=== PATIENT | female | born 1955 | race Caucasian/White ===

== ENCOUNTER → 2021-05-23 | Outpatient (CLI) | payer OTHER ==
[2021-05-23 11:24] LABS: Hematocrit 41.2 % (36.0-46.0); Hemoglobin 13.8 g/dL (12.2-16.2); Mean Corpuscular Hgb Conc. 33.5 g/dL (32.0-36.0); Mean Corpuscular Volume 89.5 fL (80.0-100.0); Red Blood Cells 4.61 10^6/uL (4.0-5.20); Red Cell Distribution Width 13.9 % (11.8-14.3); White Blood Cell 5.5 10^3/uL (4.4-10.8)
[2021-05-23 11:59] LABS: Albumin 3.7 g/dL (3.4-5.0); Calcium 9.3 mg/dL (8.5-10.1)
[2021-05-23 12:10] LABS: BUN/Creatinine Ratio 18.9; Bilirubin, Total 0.4 mg/dL (0.2-1.0); Total Protein 7.2 g/dL (6.4-8.2)
[2021-05-23 12:25] LABS: Band Neutrophils % (manual) 0; Basophils % (manual) 0 (0.0-2.0); Blast Cells 0; Metamyelocytes % 0; Myelocytes % 0; Promyelocytes % 0; Reactive Lymphocytes 0
[2021-05-23 15:53] LABS: Eosinophils % (manual) 3 (0-7); Lymphocytes % (manual) 30 (10.0-50.0); Monocytes % (manual) 7 (0-12)
== END | disposition home or self-care (01) ==
LOC: LAB 09:29
PROVIDERS: ATTEND Internal Medicine
DX: Z12.11 Encounter for screening for malignant neoplasm of colon (principal); Z00.00 Encounter for general adult medical examination without abnormal findings; E78.5 Hyperlipidemia, unspecified; E53.9 Vitamin B deficiency, unspecified; I10 Essential (primary) hypertension
CPT/HCPCS: 36415; 80053; 80061; 82274; 82306; 84439; 84443; 85007; 85027

== ENCOUNTER 2021-07-02 10:59 | Inpatient (IN) | payer MEDICARE, OTHER ==
[~2021-07-02] VITALS: Ht 170.2 cm; Wt 90.3 kg
[2021-07-02 12:28] LABS: Basophils # (auto) 0 10 ^3/uL (0-0.2); Basophils % (auto) 0.4 % (0.0-2.0); Eosinophils # (auto) 0.1 10 ^3/uL (0-0.8); Eosinophils % (auto) 2.3 % (0.0-7.0); Hematocrit 42.1 % (36.0-46.0); Hemoglobin 14.3 g/dL (12.2-16.2); Lymphocytes # (auto) 1.6 10 ^3/uL (0.4-5.4); Lymphocytes % (auto) 26.7 % (10.0-50.0); Mean Corpuscular Hemoglobin 29.9 pg (28.0-32.0); Mean Corpuscular Volume 88.2 fL (80.0-100.0); Monocytes # (auto) 0.5 10 ^3/uL (0-1.3); Monocytes % (auto) 8.9 % (0.0-12.0); Neutrophils # (auto) 3.6 10 ^3/uL (1.6-8.6); Neutrophils % (auto) 61.7 % (37.0-80.0); Nucleated Red Blood Cells % 0.1 %; Red Blood Cells 4.77 10^6/uL (4.0-5.20); Red Cell Distribution Width 14.1 % (11.8-14.3); White Blood Cell 5.9 10^3/uL (4.4-10.8)
[2021-07-02 12:48] LABS: Chloride 108 mmol/L (98-107); Potassium 4.4 mmol/L (3.5-5.1); Sodium 139 mmol/L (136-145)
[2021-07-02 12:52] LABS: Alanine Aminotransferase 40 U/L (13-56); Albumin 3.8 g/dL (3.4-5.0); Anion Gap 4 (5-15); Aspartate Aminotransferase 28 U/L (15-37); BUN/Creatinine Ratio 21.5; Blood Urea Nitrogen 23 mg/dL (7-18); Calcium 9.5 mg/dL (8.5-10.1); Carbon Dioxide 27 mmol/L (21-32); GFR African American 66 mL/min; GFR Non-African American 55 mL/min; Glucose 104 mg/dL (74-106); Magnesium 2.3 mg/dL (1.6-2.6)
[2021-07-02 13:00] LABS: Alkaline Phosphatase 114 U/L (45-117); Bilirubin, Total 0.2 mg/dL (0.2-1.0); Total Protein 7.5 g/dL (6.4-8.2)
[2021-07-02] MEDS ORDERED: ASPirin 81 mg TAB PO ONE (13:15)
[2021-07-02] MEDS ORDERED: NITROGLYCERIN 0.4 MG SL TAB SL ONE (13:15)
[2021-07-02] MEDS ORDERED: NITROGLYCERIN 0.4 MG SL TAB SL PRN (17:30)
[2021-07-02] MEDS ORDERED: MORPHINE SULFATE INJECTION 2 MG/ML SYRG IV PRN ×2 (17:30→19:15)
[2021-07-02] MEDS ORDERED: ACETAMINOPHEN 325 MG TAB PO PRN (19:15)
[2021-07-02] MEDS ORDERED: PANTOPRAZOLE 40 MG/10 ML VIAL INJ IV ONE (19:15)
[2021-07-02] MEDS ORDERED: HYDROcodone-ACET 5/325MG TAB PO PRN (19:15)
[2021-07-02] MEDS ORDERED: MULTIPLE VITAMINS W/ MINERALS TAB PO ONE (19:15)
[2021-07-02] MEDS ORDERED: MONTELUKAST SODIUM 10 MG TAB PO ONE (19:15)
[2021-07-02] MEDS ORDERED: HYDROcodone-ACET 5/325MG TAB PO ONE (19:15)
[2021-07-02] MEDS ORDERED: SUCRALFATE 1 GM/10 ML ORAL SUSP PO ONE (19:15)
[2021-07-02] MEDS ORDERED: hydrALAZINE HCL 20 MG/ML VL IV PRN (19:15)
[2021-07-02] MEDS ORDERED: ONDANSETRON HCL 4 MG/2 ML VIAL IV PRN (19:15)
[2021-07-02] MEDS ORDERED: IPRATROPIUM BROM 0.5 MG/2.5ML INH SOL NEB ONE (19:15)
[2021-07-02] MEDS ORDERED: FOLIC ACID 1 MG TAB PO ONE (19:15)
[2021-07-02] MEDS ORDERED: ALBUTEROL SULF 2.5 MG/0.5ML(0.5%) NEB SOLN NEB ONE (19:15)
[2021-07-02] MEDS ORDERED: ALBUTEROL SULF 2.5 MG/0.5ML(0.5%) NEB SOLN NEB PRN (19:15)
[2021-07-02] MEDS ORDERED: LACTULOSE 20Gm/30ML SOLN PO PRN (19:15)
[2021-07-02] MEDS ORDERED: LORazepam 0.5 MG TAB PO PRN (19:15)
[2021-07-02] MEDS ORDERED: BUDESONIDE (INHALATION) 0.5 MG/2 ML NEB NEB ONE (19:15)
[2021-07-02] MEDS ORDERED: IPRATROPIUM BROM 0.5 MG/2.5ML INH SOL NEB PRN (19:45)
[2021-07-02 19:51] LABS: Magnesium 2.2 mg/dL (1.6-2.6); Phosphorus 2.8 mg/dL (2.5-4.90)
[2021-07-02 20:21] VITALS: BP 126/60
[2021-07-02 20:39] LABS: INR 1.06 (0.9-1.15); Partial Thromboplastin Time 29.8 sec (23.6-33.0)
[2021-07-02] MEDS: SUCRALFATE 1 GM/10 ML ORAL SUSP PO SCH (22:00)
[2021-07-02] MEDS ORDERED: ACETYLCYSTEINE 10 %(100MG/ML) SOL 4ML NEB SCH (22:00)
[2021-07-02] MEDS ORDERED: IPRATROPIUM BROM 0.5 MG/2.5ML INH SOL NEB SCH (22:00)
[2021-07-02] MEDS ORDERED: ATORVASTATIN 20 MG TAB PO SCH (22:00)
[2021-07-02] MEDS ORDERED: ATOR20TA50 PO (22:54)
[2021-07-02] MEDS ORDERED: BUPR150T8 PO (22:54)
[2021-07-02] MEDS ORDERED: FLUT1AER6 IN (22:54)
[2021-07-02] MEDS ORDERED: ATEN-60 PO (22:54)
[2021-07-02] MEDS: BUDESONIDE (INHALATION) 0.5 MG/2 ML NEB NEB SCH (22:59)
[2021-07-02 23:32] VITALS: BP 136/83
[2021-07-03] MEDS ORDERED: PHEN37.577 PO (00:44)
[2021-07-03 05:00] VITALS: BP 124/77
[2021-07-03 06:04] LABS: Basophils # (auto) 0 10 ^3/uL (0-0.2); Basophils % (auto) 0.6 % (0.0-2.0); Eosinophils # (auto) 0.1 10 ^3/uL (0-0.8); Eosinophils % (auto) 2.4 % (0.0-7.0); Hematocrit 38.4 % (36.0-46.0); Hemoglobin 13.3 g/dL (12.2-16.2); Lymphocytes # (auto) 2.1 10 ^3/uL (0.4-5.4); Lymphocytes % (auto) 41.8 % (10.0-50.0); Mean Corpuscular Hemoglobin 30.8 pg (28.0-32.0); Mean Corpuscular Hgb Conc. 34.7 g/dL (32.0-36.0); Mean Corpuscular Volume 88.6 fL (80.0-100.0); Monocytes # (auto) 0.4 10 ^3/uL (0-1.3); Monocytes % (auto) 7.7 % (0.0-12.0); Neutrophils # (auto) 2.4 10 ^3/uL (1.6-8.6); Neutrophils % (auto) 47.5 % (37.0-80.0); Nucleated Red Blood Cells % 0.1 %; Red Blood Cells 4.33 10^6/uL (4.0-5.20); White Blood Cell 5.1 10^3/uL (4.4-10.8)
[2021-07-03 06:19] LABS: INR 1.09 (0.9-1.15); Partial Thromboplastin Time 31.6 sec (23.6-33.0)
[2021-07-03] MEDS: SUCRALFATE 1 GM/10 ML ORAL SUSP PO SCH ×2 (06:24→10:09)
[2021-07-03 06:30] LABS: Albumin 3.4 g/dL (3.4-5.0); BUN/Creatinine Ratio 21.5; Bilirubin, Total 0.3 mg/dL (0.2-1.0); CRP High Sensitivity 0.67 mg/dL (< 0.3); Calcium 8.7 mg/dL (8.5-10.1); Magnesium 2.2 mg/dL (1.6-2.6); Phosphorus 3.6 mg/dL (2.5-4.90); Total Protein 6.6 g/dL (6.4-8.2)
[2021-07-03 08:00] VITALS: BP 128/76
[2021-07-03] MEDS ORDERED: THIAMINE HCL 100 MG TAB PO SCH (10:00)
[2021-07-03] MEDS ORDERED: FOLIC ACID 1 MG TAB PO SCH (10:00)
[2021-07-03] MEDS ORDERED: CHOLECALCIFEROL (VITD3) 2,000 UNIT CAP/TAB PO SCH (10:00)
[2021-07-03] MEDS ORDERED: ENOXAPARIN SOD 40 MG/0.4 ML SYRINGE SC SCH (10:00)
[2021-07-03] MEDS ORDERED: MULTIPLE VITAMINS W/ MINERALS TAB PO SCH (10:00)
[2021-07-03] MEDS ORDERED: CYANOCOBALAMIN 500 MCG TAB PO SCH (10:00)
[2021-07-03] MEDS ORDERED: PANTOPRAZOLE 40 MG/10 ML VIAL INJ IV SCH (10:00)
[2021-07-03] MEDS ORDERED: ASPirin 81 mg TAB PO SCH (10:00)
[2021-07-03] MEDS: BUDESONIDE (INHALATION) 0.5 MG/2 ML NEB NEB SCH (10:25)
[2021-07-03 12:43] VITALS: BP 139/78
[2021-07-03 12:50] LABS: Alcohol, Urine < 3.0 mg/dL (0-10); Amphetamine Screen, Urine NEGATIVE (NEGATIVE); Barbiturate Scree,Urine NEGATIVE (NEGATIVE); Benzodiazephine Screen, Urine NEGATIVE (NEGATIVE); Cannabinoid Screen, Urine NEGATIVE (NEGATIVE); Cocaine Screen, Urine NEGATIVE (NEGATIVE); Opiate Scree,Urine NEGATIVE (NEGATIVE); Phencyclidine Screen, Urine NEGATIVE (NEGATIVE)
[2021-07-03 12:59] LABS: Urine Bacteria NONE SEEN /hpf (None Seen); Urine Blood Negative /uL (Negative); Urine Specific Gravity 1.004 (1.001-1.035); Urine WBC 13 /hpf (0 - 5)
[2021-07-03 16:16] VITALS: BP 139/78
[2021-07-03 16:51] VITALS: BP 127/77
[2021-07-03] MEDS ORDERED: MONTELUKAST SODIUM 10 MG TAB PO SCH (22:00)
== END 2021-07-03 17:29 | disposition home or self-care (01) | DRG 313 ==
LOC: ER 10:59 → TELE 17:20 → TELE-WESTW 21:50
PROVIDERS: ADMIT Hospitalist; ATTEND Hospitalist
DX: R07.89 Other chest pain (principal); N39.0 Urinary tract infection, site not specified; K21.9 Gastro-esophageal reflux disease without esophagitis; K29.00 Acute gastritis without bleeding; E66.01 Morbid (severe) obesity due to excess calories; E78.5 Hyperlipidemia, unspecified; I11.9 Hypertensive heart disease without heart failure; Z20.822 Contact with and (suspected) exposure to COVID-19; I25.119 Atherosclerotic heart disease of native coronary artery with unspecified angina pectoris; J45.909 Unspecified asthma, uncomplicated; Z68.31 Body mass index [BMI] 31.0-31.9, adult; Z88.5 Allergy status to narcotic agent; Z88.8 Allergy status to other drugs, medicaments and biological substances
CPT/HCPCS: 36415; 71046; 80053; 80061; 80307; 81001; 82728; 83036; 83615; 83690; 83735; 83880; 84100; 84443; 84484; 85025; 85379; 85610; 85652; 85730; 86141; 87040; 87086; 93005; 93306; 94640; 96374; C9113; G0378

== ENCOUNTER → 2021-09-05 | Outpatient (CLI) | payer OTHER ==
[~2021-09-05] VITALS: Ht 170.2 cm; Wt 86.2 kg
[~2021-09-05] MED LIST: ADENOSINE 72 MG in GIVE UN-DILUTED 0 ML IV ONE; ATEN-60 PO; ATOR20TA50 PO; BUPR150T8 PO; FLUT1AER6 IN; PHEN37.577 PO
== END | disposition home or self-care (01) ==
LOC: XYW 08:38
PROVIDERS: ATTEND Internal Medicine
DX: I10 Essential (primary) hypertension (principal); E78.5 Hyperlipidemia, unspecified; Z68.30 Body mass index [BMI] 30.0-30.9, adult
CPT/HCPCS: 78452; 93017; A9500; J0153

== ENCOUNTER → 2022-08-31 | Outpatient (CLI) | payer OTHER ==
[~2022-08-31] MED LIST changes: -ADENOSINE 72 MG in GIVE UN-DILUTED 0 ML IV ONE
== END | disposition home or self-care (01) ==
LOC: LAB 09:24
PROVIDERS: ATTEND Internal Medicine
DX: I10 Essential (primary) hypertension (principal); M85.80 Other specified disorders of bone density and structure, unspecified site; F32.A Depression, unspecified
CPT/HCPCS: 82270

== ENCOUNTER → 2022-09-02 | Outpatient (CLI) | payer OTHER | END | disposition home or self-care (01) | LOC: LAB 13:44 | PROVIDERS: ATTEND Internal Medicine Gastroenterology | DX: R19.7 Diarrhea, unspecified (principal); R19.4 Change in bowel habit | CPT/HCPCS: 87045; 87427 ==

== ENCOUNTER → 2022-09-03 | Outpatient (CLI) | payer OTHER ==
[2022-09-03 14:59] LABS: Albumin 4.3 g/dL (3.4-5.0); Calcium 9.7 mg/dL (8.5-10.1); Potassium 4.2 mmol/L (3.5-5.1)
[2022-09-03 15:02] LABS: Bilirubin, Total 0.2 mg/dL (0.2-1.0); Total Protein 7.7 g/dL (6.4-8.2)
== END | disposition home or self-care (01) ==
LOC: LAB 14:27
PROVIDERS: ATTEND Internal Medicine
DX: K52.9 Noninfective gastroenteritis and colitis, unspecified (principal)
CPT/HCPCS: 36415; 80053

== ENCOUNTER → 2022-09-10 | Outpatient (CLI) | payer OTHER | END | disposition home or self-care (01) | LOC: LAB 08:38 | PROVIDERS: ATTEND Internal Medicine Gastroenterology | DX: R19.7 Diarrhea, unspecified (principal); R19.4 Change in bowel habit | CPT/HCPCS: 87045; 87177; 87427; 87493 ==

== ENCOUNTER → 2022-09-23 | Day surgery (SDC) | payer OTHER ==
[2022-09-22 11:35] LABS: Basophils # (auto) 0 10 ^3/uL (0-0.2); Basophils % (auto) 0.5 % (0.0-2.0); Eosinophils # (auto) 0.1 10 ^3/uL (0-0.8); Eosinophils % (auto) 1.5 % (0.0-7.0); Hematocrit 41.3 % (36.0-46.0); Hemoglobin 14.1 g/dL (12.2-16.2); Lymphocytes # (auto) 2.3 10 ^3/uL (0.4-5.4); Lymphocytes % (auto) 30.7 % (10.0-50.0); Mean Corpuscular Hemoglobin 31.2 pg (28.0-32.0); Mean Corpuscular Hgb Conc. 34.2 g/dL (32.0-36.0); Mean Corpuscular Volume 91.2 fL (80.0-100.0); Monocytes # (auto) 0.6 10 ^3/uL (0-1.3); Monocytes % (auto) 7.9 % (0.0-12.0); Neutrophils # (auto) 4.5 10 ^3/uL (1.6-8.6); Neutrophils % (auto) 59.4 % (37.0-80.0); Red Blood Cells 4.53 10^6/uL (4.0-5.20); Red Cell Distribution Width 14.1 % (11.8-14.3); White Blood Cell 7.6 10^3/uL (4.4-10.8)
[2022-09-22 11:57] LABS: INR 1.01 (0.9-1.15); Partial Thromboplastin Time 28.2 sec (24.6-33.4)
[2022-09-22 12:20] LABS: Potassium 4.2 mmol/L (3.5-5.1)
[2022-09-22 12:31] LABS: Albumin 3.9 g/dL (3.4-5.0); BUN/Creatinine Ratio 17.1 (10.0-20.0); Bilirubin, Total 0.3 mg/dL (0.2-1.0); Calcium 9.4 mg/dL (8.5-10.1); Total Protein 7.7 g/dL (6.4-8.2)
[~2022-09-23] VITALS: Ht 170.2 cm; Wt 82.6 kg
[~2022-09-23] MED LIST changes: +HYDR1SYP3 PO; +LIDOCAINE VISCOUS 2% 15ML UD ONE; -PHEN37.577 PO
[2022-09-23] MEDS: fentaNYL CITRATE 100 MCG/2 ML VL ONE ×2 (15:22→15:25)
[2022-09-23] MEDS: diphenhdrAMINE HCL 50 MG/1 ML VL ONE ×2 (15:22→15:24)
[2022-09-23] MEDS: MIDAZOLAM HCL 5 MG/ML-1ML VIAL ONE ×2 (15:22→15:25)
[2022-09-23 16:05] VITALS: BP 139/70
== END | disposition home or self-care (01) ==
LOC: GI 13:46
PROVIDERS: ATTEND Internal Medicine Gastroenterology
DX: R63.4 Abnormal weight loss (principal); K29.70 Gastritis, unspecified, without bleeding; K31.7 Polyp of stomach and duodenum; I10 Essential (primary) hypertension; E78.5 Hyperlipidemia, unspecified; J45.909 Unspecified asthma, uncomplicated; Z82.49 Family history of ischemic heart disease and other diseases of the circulatory system; Z82.61 Family history of arthritis; Z83.42 Family history of familial hypercholesterolemia; Z80.8 Family history of malignant neoplasm of other organs or systems; Z88.8 Allergy status to other drugs, medicaments and biological substances; Z88.2 Allergy status to sulfonamides; Z88.6 Allergy status to analgesic agent; Z88.5 Allergy status to narcotic agent; Z91.048 Other nonmedicinal substance allergy status; Z87.891 Personal history of nicotine dependence; Z79.899 Other long term (current) drug therapy; Z90.710 Acquired absence of both cervix and uterus; Z98.890 Other specified postprocedural states
CPT/HCPCS: 36415; 43239; 80053; 85025; 85610; 85730; J1200; J2250; J3010; J7030

== ENCOUNTER → 2022-09-30 | Outpatient (CLI) | payer OTHER ==
[~2022-09-30] MED LIST changes: -LIDOCAINE VISCOUS 2% 15ML UD ONE
== END | disposition home or self-care (01) ==
LOC: LAB 09:42
PROVIDERS: ATTEND Internal Medicine Gastroenterology
DX: R63.4 Abnormal weight loss (principal)
CPT/HCPCS: 36415; 82565; 84520

== ENCOUNTER 2022-10-02 09:55 | Day surgery (SDC) | payer OTHER ==
[2022-09-30 09:59] LABS: Basophils # (auto) 0 10 ^3/uL (0-0.2); Basophils % (auto) 0.4 % (0.0-2.0); Eosinophils # (auto) 0.2 10 ^3/uL (0-0.8); Eosinophils % (auto) 2.6 % (0.0-7.0); Hematocrit 40.1 % (36.0-46.0); Hemoglobin 13.6 g/dL (12.2-16.2); Lymphocytes % (auto) 33.4 % (10.0-50.0); Mean Corpuscular Hemoglobin 30.9 pg (28.0-32.0); Mean Corpuscular Hgb Conc. 33.8 g/dL (32.0-36.0); Mean Corpuscular Volume 91.4 fL (80.0-100.0); Monocytes # (auto) 0.5 10 ^3/uL (0-1.3); Monocytes % (auto) 8.8 % (0.0-12.0); Neutrophils # (auto) 3.3 10 ^3/uL (1.6-8.6); Neutrophils % (auto) 54.8 % (37.0-80.0); Red Blood Cells 4.39 10^6/uL (4.0-5.20); Red Cell Distribution Width 13.9 % (11.8-14.3); White Blood Cell 6.1 10^3/uL (4.4-10.8)
[2022-09-30 10:36] LABS: Potassium 4.5 mmol/L (3.5-5.1)
[2022-09-30 10:43] LABS: BUN/Creatinine Ratio 22.1 (10.0-20.0); Bilirubin, Total 0.2 mg/dL (0.2-1.0); Calcium 8.8 mg/dL (8.5-10.1); Total Protein 7.7 g/dL (6.4-8.2)
[2022-09-30 10:47] LABS: INR 0.97 (0.9-1.15); Partial Thromboplastin Time 29.2 sec (24.6-33.4)
[~2022-10-02] VITALS: Ht 172.7 cm; Wt 83.0 kg
[2022-10-02] MEDS: diphenhdrAMINE HCL 50 MG/1 ML VL ONE ×2 (11:46→11:50)
[2022-10-02] MEDS: MIDAZOLAM HCL 2MG/2ML 2ml VIAL (1mg/ml) ONE ×5 (11:46→12:02)
[2022-10-02] MEDS: fentaNYL CITRATE 100 MCG/2 ML VL ONE ×7 (11:46→12:13)
[2022-10-02 13:06] VITALS: BP 138/79
== END 2022-10-02 13:10 | disposition home or self-care (01) ==
LOC: GI 09:55
PROVIDERS: ATTEND Internal Medicine Gastroenterology
DX: R19.4 Change in bowel habit (principal); Q43.8 Other specified congenital malformations of intestine; K63.5 Polyp of colon; K58.9 Irritable bowel syndrome, unspecified
CPT/HCPCS: 36415; 45385; 80053; 85025; 85610; 85730; J1200; J2250; J3010; 99152; 99153

== ENCOUNTER → 2022-11-25 | Outpatient (CLI) | payer OTHER | END | disposition home or self-care (01) | LOC: XYW 08:32 | PROVIDERS: ATTEND Internal Medicine Gastroenterology | DX: K80.20 Calculus of gallbladder without cholecystitis without obstruction (principal) | CPT/HCPCS: 78226; A9537 ==

== ENCOUNTER → 2022-12-15 | Outpatient (CLI) | payer OTHER ==
[2022-12-15 10:27] LABS: INR 1.04 (0.9-1.15); Prothrombin Time 10.9 sec (9.3-11.8)
[2022-12-15 10:49] LABS: Alanine Aminotransferase 27 U/L (7-40); Alkaline Phosphatase 106 U/L (46-116); BUN/Creatinine Ratio 17.6 (10.0-20.0); Blood Urea Nitrogen 16 mg/dL (9-23); Calcium 9.6 mg/dL (8.5-10.1); Chloride 106 mmol/L (98-107); Glucose 91 mg/dL (74-106); Potassium 4.2 mmol/L (3.5-5.1); Sodium 140 mmol/L (136-145)
[2022-12-15 10:50] LABS: Albumin 4.4 g/dL (3.2-4.8); Aspartate Aminotransferase 22 U/L (13-40)
[2022-12-15 10:51] LABS: Bilirubin, Total 0.4 mg/dL (0.2-1.0); Total Protein 7.3 g/dL (5.7-8.2)
[2022-12-17 09:35] LABS: Hepatitis B Surface Antigen Negative (Negative)
[2022-12-17 09:56] LABS: Hepatitis C Antibody Negative (Negative)
== END | disposition home or self-care (01) ==
LOC: LAB 09:46
PROVIDERS: ATTEND Internal Medicine Gastroenterology
DX: R94.5 Abnormal results of liver function studies (principal)
CPT/HCPCS: 36415; 80053; 82728; 85610; 86038; 86803; 87340

== ENCOUNTER → 2023-02-15 | Outpatient (CLI) | payer OTHER | END | disposition home or self-care (01) | LOC: LAB 11:58 | PROVIDERS: ATTEND Internal Medicine | DX: R42 Dizziness and giddiness (principal) | CPT/HCPCS: 36415; 82565; 84520 ==

== ENCOUNTER → 2023-05-31 | Outpatient (CLI) | payer OTHER ==
[~2023-05-31] MED LIST changes: +BUPIVACAINE HCL 0.25% P/F 10 ML VIAL ONE; +LIDOCAINE 2%HCL (LOCAL ANESTH.) INJ 10ml MDV ONE; +methylPREDNISolone ACETATE 80 MG/ML VL ONE
== END | disposition home or self-care (01) ==
LOC: XYW 10:58
PROVIDERS: ATTEND Orthopaedic Surgery Sports Medicine
DX: M19.042 Primary osteoarthritis, left hand (principal); S62.347A Nondisplaced fracture of base of fifth metacarpal bone, left hand, initial encounter for closed fracture; I10 Essential (primary) hypertension; Z82.61 Family history of arthritis; Z80.8 Family history of malignant neoplasm of other organs or systems; Z82.49 Family history of ischemic heart disease and other diseases of the circulatory system; Z83.42 Family history of familial hypercholesterolemia; Z87.891 Personal history of nicotine dependence; Z88.6 Allergy status to analgesic agent; Z88.8 Allergy status to other drugs, medicaments and biological substances; Z88.2 Allergy status to sulfonamides; Z79.899 Other long term (current) drug therapy; Z90.710 Acquired absence of both cervix and uterus; X58.XXXA Exposure to other specified factors, initial encounter; Y93.89 Activity, other specified; Y92.89 Other specified places as the place of occurrence of the external cause; Y99.8 Other external cause status
CPT/HCPCS: 20600; 73120; 77002; J1040; J2001; J3490; 20610

== ENCOUNTER → 2023-10-19 | Outpatient (CLI) | payer OTHER ==
[~2023-10-19] MED LIST changes: -BUPIVACAINE HCL 0.25% P/F 10 ML VIAL ONE; -LIDOCAINE 2%HCL (LOCAL ANESTH.) INJ 10ml MDV ONE; -methylPREDNISolone ACETATE 80 MG/ML VL ONE
[2023-10-19 12:17] LABS: Basophils # (auto) 0 10 ^3/uL (0-0.2); Basophils % (auto) 0.5 % (0.0-2.0); Eosinophils # (auto) 0.3 10 ^3/uL (0-0.8); Hematocrit 40.8 % (36.0-46.0); Hemoglobin 13.8 g/dL (12.2-16.2); Lymphocytes # (auto) 2.2 10 ^3/uL (0.4-5.4); Mean Corpuscular Hemoglobin 30.8 pg (28.0-32.0); Mean Corpuscular Hgb Conc. 33.9 g/dL (32.0-36.0); Mean Corpuscular Volume 90.7 fL (80.0-100.0); Monocytes # (auto) 0.7 10 ^3/uL (0-1.3); Monocytes % (auto) 8.8 % (0.0-12.0); Neutrophils # (auto) 5.3 10 ^3/uL (1.6-8.6); Neutrophils % (auto) 61.7 % (37.0-80.0); Red Cell Distribution Width 13.3 % (11.8-14.3); White Blood Cell 8.5 10^3/uL (4.4-10.8)
[2023-10-19 13:11] LABS: Follicle Stimulating Hormone 42.2 IU/L (SEE BELOW)
[2023-10-19 13:12] LABS: Leuteinizing Hormone 17.5 IU/L
== END | disposition home or self-care (01) ==
LOC: LAB 11:51
PROVIDERS: ATTEND Obstetrics & Gynecology
DX: N95.1 Menopausal and female climacteric states (principal)
CPT/HCPCS: 36415; 82670; 83001; 83002; 84403; 84443; 85025

== ENCOUNTER → 2024-02-16 | Outpatient (CLI) | payer OTHER ==
[~2024-02-16] MED LIST changes: +HYDR10SY18 PO; -HYDR1SYP3 PO
--- NOTE | 2024-02-17 17:24 | DVHSR ---
APPROVED REPORT EXAM: Two-dimensional and M-mode echocardiogram with Doppler and color Doppler. INDICATION Hypertension RISK FACTORS Hypertension: Height: 67, Weight: 203 DIMENSIONS LVDd4.4 (3.8-5.7cm)LA (2D)3.5 (1.9-4.0cm)Aortic Root2.8 (2.0-3.7cm) LVDs2.7 (2.5-4.0cm)LA (MM) (1.9-4.0cm)Aortic Cusp Exc1.3 (1.5-2.0cm) EF (%) 69.0 (55-70%)Rt. Atrium (1.9-4.0cm)Asc. Aorta2.8 cm IVSd0.9 (0.7-1.1cm)RV (D) (1.8-2.4cm) PWd0.9 (0.7-1.1cm) Mitral Valve MitralMitral Stenosis E wave0.79m/sMV Mean GR.mmHg A wave0.85m/sMV Peak GR.mmHg E/A ratio0.92D MVAcm2 DECEL [id number] 1/2 Timems Aortic Valve Aortic ValveAortic Stenosis V11.00m/Jaz Mean GR.4mmHg V21.29m/Jaz Peak GR.7mmHg LVOT Diameter1.8 (1.8-2.4cm)Doppler AVA1.97cm2 Pulmonic Valve V20.86m/s Tricuspid Valve TR Velocity2.09m/s [id number] Other Information Quality : Technically LimitedRhythm : Technically limited study due to body habitus. Conclusion Technically good study. Sinus rhythm. Normal chamber sizes. Valves are normal. EF of 60% with normal RV function. Dopplers unremarkable. No pericardial effusion masses or vegetations.
== END | disposition home or self-care (01) ==
LOC: XYW 09:31
PROVIDERS: ATTEND Internal Medicine
DX: Z01.810 Encounter for preprocedural cardiovascular examination (principal); I10 Essential (primary) hypertension
CPT/HCPCS: 93306

== ENCOUNTER 2024-02-23 07:10 | Day surgery (SDC) | payer MEDICARE, OTHER ==
[2024-02-21 13:55] LABS: Urine Bacteria None Seen /hpf (None Seen)
[2024-02-21 13:58] LABS: Basophils # (auto) 0 10 ^3/uL (0-0.2); Basophils % (auto) 0.5 % (0.0-2.0); Eosinophils # (auto) 0.2 10 ^3/uL (0-0.8); Eosinophils % (auto) 3.5 % (0.0-7.0); Hematocrit 42.5 % (36.0-46.0); Hemoglobin 14.2 g/dL (12.2-16.2); Lymphocytes # (auto) 2.4 10 ^3/uL (0.4-5.4); Lymphocytes % (auto) 33.2 % (10.0-50.0); Mean Corpuscular Hemoglobin 30.1 pg (28.0-32.0); Mean Corpuscular Hgb Conc. 33.4 g/dL (32.0-36.0); Mean Corpuscular Volume 90.2 fL (80.0-100.0); Monocytes # (auto) 0.6 10 ^3/uL (0-1.3); Neutrophils # (auto) 3.9 10 ^3/uL (1.6-8.6); Neutrophils % (auto) 53.8 % (37.0-80.0); Nucleated Red Blood Cells % 0.1 %; Platelet Count (auto) 216 10^3/uL (140-450); Red Blood Cells 4.71 10^6/uL (4.0-5.20); Red Cell Distribution Width 14.1 % (11.8-14.3); White Blood Cell 7.2 10^3/uL (4.4-10.8)
[2024-02-21 14:06] LABS: Urine Blood Negative /uL (Negative); Urine Clarity Clear (Clear); Urine Color Yellow (Yellow); Urine Protein, UAD Negative (Negative); Urine Specific Gravity 1.018 (1.001-1.035); Urine Urobilinogen Normal (Negative); Urine WBC 2 /hpf (0 - 5)
[2024-02-21 14:15] LABS: INR 1.05 (0.9-1.15); Partial Thromboplastin Time 27.9 SEC (24.5-34.5); Prothrombin Time 11.1 sec (9.3-11.8)
[2024-02-21 14:25] LABS: Alanine Aminotransferase 29 U/L (7-40); Albumin 4.6 g/dL (3.2-4.8); Alkaline Phosphatase 131 U/L (46-116); Anion Gap 5 (5-15); Aspartate Aminotransferase 26 U/L (13-40); Blood Urea Nitrogen 25 mg/dL (9-23); Calcium 10.2 mg/dL (8.7-10.4); Carbon Dioxide 29 mmol/L (20-31); Chloride 107 mmol/L (98-107); Glucose 108 mg/dL (74-106); Potassium 4.4 mmol/L (3.5-5.1); Sodium 141 mmol/L (136-145)
[2024-02-21 14:26] LABS: Bilirubin, Total 0.3 mg/dL (0.2-1.0); Total Protein 7.5 g/dL (5.7-8.2)
[~2024-02-23] VITALS: Ht 170.2 cm; Wt 92.1 kg
[~2024-02-23 07:10] MED LIST changes: +ALBUAER3 IN; -HYDR10SY18 PO
[2024-02-23] MEDS ORDERED: ceFAZolin 2 GM/D5W100ml 100 ML IV ONE (07:43)
[2024-02-23] MEDS ORDERED: fentaNYL CITRATE 100 MCG/2 ML VL ONE (09:22)
[2024-02-23] MEDS ORDERED: MEPERIDINE HCL (50 MG/ML) 1 ML VIAL ONE (09:53)
[2024-02-23] MEDS ORDERED: ePHEDrine SULFATE 50 MG/ML AMP ONE (09:58)
[2024-02-23] MEDS: BUPIVACAINE 0.5% MPF INJ 30ML SDV IJ ONE (10:10)
[2024-02-23] MEDS: LIDOCAINE W/ EPINEPHRINE 1% 20ML VIAL ONE (10:11)
[2024-02-23 10:24] VITALS: PULSE 74; RESP 14; TEMP 98.8; O2SAT 93
[2024-02-23] MEDS ORDERED: MEPERIDINE HCL (25 MG/ML) 1ML VIAL IV PRN (10:45)
[2024-02-23] MEDS ORDERED: HYDROmorphone HCL 2 MG/ML VL/or syr IV PRN (10:45)
[2024-02-23] MEDS ORDERED: ONDANSETRON HCL 4 MG/2 ML VIAL ONE (11:04)
[2024-02-23] MEDS: ONDANSETRON HCL 4 MG/2 ML VIAL IV ONE (11:07)
[2024-02-23 11:30] VITALS: BP 131/73; PULSE 74; RESP 12; O2SAT 92
--- NOTE | 2024-02-23 13:42 | DVHOP ---
DATE OF SURGERY: 02/23/2024 PREOPERATIVE DIAGNOSIS: Lipoma, right lower leg (pretibial area). POSTOPERATIVE DIAGNOSIS: Lipoma, right lower leg (pretibial area). SURGEON: Kd Bermudez MD DIRECTOR OF FINANCIAL REPORTING: Gregory Villalobos. ANESTHESIA: General endotracheal. ANESTHESIOLOGIST: Dr. Thao. PROCEDURE: Excision of lipoma. DESCRIPTION OF PROCEDURE: Under adequate anesthesia, with the patient's skin prepped and draped, the lipoma was delineated by palpation, had been previously been localized by the patient in the preoperative area and encircled with an indelible ink pen. A horizontal incision was made and the fatty tissue was removed, submitted for histopathologic examination. Several ____ vessels were controlled with Hemoclips. The wound was irrigated. Hemostasis was accomplished. Approximation accomplished using Monocryl sutures, Dermabond glue and Steri-Strips. The patient remained stable throughout the procedure, left the operating room following an accurate needle and sponge count. Her , Danny Avelar, for now, was thoroughly informed in the waiting area at [phone]. Kd Bermudez MD PF TID: [id number] RECEIPT: [id number]
== END 2024-02-23 11:45 | disposition home or self-care (01) ==
LOC: SUR 07:10
PROVIDERS: ATTEND Surgery
DX: D17.23 Benign lipomatous neoplasm of skin and subcutaneous tissue of right leg (principal); I11.0 Hypertensive heart disease with heart failure; I50.9 Heart failure, unspecified; E66.01 Morbid (severe) obesity due to excess calories; Z88.2 Allergy status to sulfonamides; Z88.6 Allergy status to analgesic agent; Z88.8 Allergy status to other drugs, medicaments and biological substances; Z91.09 Other allergy status, other than to drugs and biological substances; Z90.710 Acquired absence of both cervix and uterus; J45.909 Unspecified asthma, uncomplicated; Z87.891 Personal history of nicotine dependence; Z82.49 Family history of ischemic heart disease and other diseases of the circulatory system; Z98.890 Other specified postprocedural states; Z91.048 Other nonmedicinal substance allergy status; Z68.32 Body mass index [BMI] 32.0-32.9, adult; Z79.899 Other long term (current) drug therapy
CPT/HCPCS: 27632; 36415; 80053; 81001; 85025; 85610; 85730; 88305; J2175; J2405; J3010; J3490

== ENCOUNTER → 2024-03-30 | Outpatient (CLI) | payer OTHER ==
[~2024-03-30] MED LIST changes: +BUPIVACAINE HCL 0.25% P/F 10 ML VIAL ONE; +IOHEXOL 300 MG/ML 100ML BOTTLE IJ ONE; +LIDOCAINE 2%HCL (LOCAL ANESTH.) INJ 10ml MDV ONE; +methylPREDNISolone ACETATE 80 MG/ML VL ONE
--- NOTE | 2024-03-30 09:37 | DVH ---
PROCEDURE: Left 1st CMC Steroid Injection HISTORY: Osteoarthritis DOCUMENTATION: Informed consent was obtained and a procedural time out was performed. FT: 1.4 minutes Dose: 12.64 DAP Technique: Following adequate sterile preparation with chloroprep solution and local anesthesia using 1% lidocai ne, a 25-gauge needle was introduced the left first CMC joint using intermittent fluoroscopic guidanc e. Intra-articular location of the needle tip was confirmed with a small amount of omnipaque contrast . Subsequently 80 mg of Depo-Medrol and 6 cc of 1% bupivacaine were injected slowly into the joint sp jennifer. No immediate complications were seen. FINDINGS: There is contrast opacification of the joint capsule. There is washout of contrast upon steroid injec tion. Impression: 1. Uneventful left first CMC injection with Depo-Medrol and bupivacaine as described above.
== END | disposition home or self-care (01) ==
LOC: XYW 07:58
PROVIDERS: ATTEND Orthopaedic Surgery Adult Reconstructive Orthopaedic Surgery
DX: M18.12 Unilateral primary osteoarthritis of first carpometacarpal joint, left hand (principal); Z90.710 Acquired absence of both cervix and uterus; Z87.891 Personal history of nicotine dependence; Z82.49 Family history of ischemic heart disease and other diseases of the circulatory system; Z83.42 Family history of familial hypercholesterolemia; Z82.61 Family history of arthritis; Z80.8 Family history of malignant neoplasm of other organs or systems; Z83.2 Family history of diseases of the blood and blood-forming organs and certain disorders involving the immune mechanism
CPT/HCPCS: 20600; 77002; J1010; J2003; J3490; Q9967; 73140

== ENCOUNTER → 2024-08-23 | Outpatient (CLI) | payer OTHER ==
[~2024-08-23] MED LIST changes: +ACE650RS PR; +ASCO500T11 GT; +ASPI81CH59 PO; -BUPIVACAINE HCL 0.25% P/F 10 ML VIAL ONE; +CRAN600T OR; +HYDR-3682 PO; -IOHEXOL 300 MG/ML 100ML BOTTLE IJ ONE; -LIDOCAINE 2%HCL (LOCAL ANESTH.) INJ 10ml MDV ONE; +MISCCAP PO; +MORI500C PO; +VITA100C13 PO; -methylPREDNISolone ACETATE 80 MG/ML VL ONE
[2024-08-23 11:56] LABS: Basophils # (auto) 0 10 ^3/uL (0-0.2); Basophils % (auto) 0.5 % (0.0-2.0); Eosinophils # (auto) 0.2 10 ^3/uL (0-0.8); Eosinophils % (auto) 3.6 % (0.0-7.0); Hematocrit 42.3 % (36.0-46.0); Hemoglobin 14.4 g/dL (12.2-16.2); Lymphocytes # (auto) 2.2 10 ^3/uL (0.4-5.4); Lymphocytes % (auto) 36.2 % (10.0-50.0); Mean Corpuscular Hemoglobin 30.7 pg (28.0-32.0); Mean Corpuscular Volume 90.3 fL (80.0-100.0); Monocytes # (auto) 0.5 10 ^3/uL (0-1.3); Monocytes % (auto) 8.5 % (0.0-12.0); Neutrophils # (auto) 3.1 10 ^3/uL (1.6-8.6); Neutrophils % (auto) 51.2 % (37.0-80.0); Platelet Count (auto) 227 10^3/uL (140-450); Red Blood Cells 4.69 10^6/uL (4.0-5.20); Red Cell Distribution Width 14.5 % (11.8-14.3); White Blood Cell 6.1 10^3/uL (4.4-10.8)
[2024-08-23 12:11] LABS: Alanine Aminotransferase 24 U/L (7-40); Albumin 4.9 g/dL (3.2-4.8); Alkaline Phosphatase 122 U/L (46-116); Anion Gap 8 (5-15); Aspartate Aminotransferase 21 U/L (13-40); BUN/Creatinine Ratio 20.5 (10.0-20.0); Blood Urea Nitrogen 23 mg/dL (9-23); Calcium 10.8 mg/dL (8.7-10.4); Carbon Dioxide 27 mmol/L (20-31); Chloride 105 mmol/L (98-107); Cholesterol 136 mg/dL (< 200); Glucose 93 mg/dL (74-106); HDL Cholesterol 54 mg/dL (40-59); LDL Cholesterol 64 mg/dL (< 100); Potassium 4.2 mmol/L (3.5-5.1); Sodium 140 mmol/L (136-145); Total Protein 7.7 g/dL (5.7-8.2); Triglycerides 110 mg/dL (< 150)
[2024-08-23 12:12] LABS: Bilirubin, Total 0.3 mg/dL (0.2-1.0)
[2024-08-23 12:30] LABS: Erythrocyte Sedimentation Rate 13 mm/hr (0-20)
== END | disposition home or self-care (01) ==
LOC: LAB 11:29
PROVIDERS: ATTEND Internal Medicine
DX: I10 Essential (primary) hypertension (principal); E78.5 Hyperlipidemia, unspecified
CPT/HCPCS: 36415; 80053; 80061; 84439; 84443; 85025; 85652

== ENCOUNTER 2024-08-28 07:32 | Day surgery (SDC) | payer MEDICARE, OTHER ==
[2024-08-23 11:50] LABS: Urine Bacteria None Seen /hpf (None Seen)
[2024-08-23 11:57] LABS: Basophils # (auto) 0 10 ^3/uL (0-0.2); Basophils % (auto) 0.5 % (0.0-2.0); Eosinophils # (auto) 0.2 10 ^3/uL (0-0.8); Eosinophils % (auto) 3.6 % (0.0-7.0); Hematocrit 43.5 % (36.0-46.0); Hemoglobin 14.8 g/dL (12.2-16.2); Lymphocytes # (auto) 2.3 10 ^3/uL (0.4-5.4); Lymphocytes % (auto) 36.5 % (10.0-50.0); Mean Corpuscular Hemoglobin 30.7 pg (28.0-32.0); Mean Corpuscular Volume 90.2 fL (80.0-100.0); Monocytes # (auto) 0.5 10 ^3/uL (0-1.3); Monocytes % (auto) 8.4 % (0.0-12.0); Neutrophils # (auto) 3.3 10 ^3/uL (1.6-8.6); Nucleated Red Blood Cells % 0.1 %; Platelet Count (auto) 223 10^3/uL (140-450); Red Blood Cells 4.83 10^6/uL (4.0-5.20); Red Cell Distribution Width 14.3 % (11.8-14.3); White Blood Cell 6.4 10^3/uL (4.4-10.8)
[2024-08-23 12:04] LABS: Urine Blood Negative /uL (Negative); Urine Clarity Clear (Clear); Urine Color Light-Yellow (Yellow); Urine Protein, UAD Negative (Negative); Urine Specific Gravity 1.014 (1.001-1.035); Urine Squamous Epithelial Cell FEW /hpf (<5); Urine Urobilinogen Normal (Negative); Urine WBC 1 /HPF (0-5)
[2024-08-23 12:10] LABS: INR 0.99 (0.9-1.15); Partial Thromboplastin Time 28.7 SEC (24.5-34.5); Prothrombin Time 10.5 sec (9.3-11.8)
[2024-08-23 12:12] LABS: Alanine Aminotransferase 20 U/L (7-40); Alkaline Phosphatase 117 U/L (46-116); Anion Gap 9 (5-15); Aspartate Aminotransferase 22 U/L (13-40); BUN/Creatinine Ratio 19.5 (10.0-20.0); Bilirubin, Total 0.3 mg/dL (0.2-1.0); Blood Urea Nitrogen 22 mg/dL (9-23); Calcium 10.1 mg/dL (8.7-10.4); Carbon Dioxide 27 mmol/L (20-31); Chloride 105 mmol/L (98-107); Glucose 93 mg/dL (74-106); Potassium 4.2 mmol/L (3.5-5.1); Sodium 141 mmol/L (136-145); Total Protein 7.6 g/dL (5.7-8.2)
[~2024-08-28] VITALS: Ht 170.2 cm; Wt 92.5 kg
[2024-08-28] MEDS ORDERED: LIDOCAINE HCL 2% TOP JELLY 5ML TOP ONE (07:39)
[2024-08-28] MEDS ORDERED: KETAMINE 50mg/ML 1ml syringe ONE (07:39)
[2024-08-28] MEDS ORDERED: ONDANSETRON HCL 4 MG/2 ML VIAL ONE (07:39)
[2024-08-28] MEDS ORDERED: LIDOCAINE 1% INJ PF 5ML AMP ONE (07:39)
[2024-08-28] MEDS ORDERED: PROPOFOL 10 MG/ML 20 ML IV ONE (07:39)
[2024-08-28] MEDS ORDERED: MIDAZOLAM HCL 2MG/2ML 2ml VIAL (1mg/ml) ONE (07:39)
[2024-08-28] MEDS ORDERED: fentaNYL CITRATE 100 MCG/2 ML VL ONE ×2 (07:39→10:07)
[2024-08-28] MEDS ORDERED: METOCLOPRAMIDE HCL 5MG/ml INJ 2ml VIAL IV ONE (08:15)
[2024-08-28] MEDS ORDERED: KETOROLAC TROMETH 30 MG/ML 1ML VIAL IV ONE (08:15)
[2024-08-28] MEDS ORDERED: HYDROmorphone HCL 2 MG/ML VL/or syr IV PRN ×3 (08:15→11:30)
[2024-08-28] MEDS ORDERED: MORPHINE SULFATE 4 MG/ML SYR/VIAL IV PRN (08:15)
[2024-08-28] MEDS ORDERED: MORPHINE SULFATE INJ 2 MG/ml SYRG IV PRN (08:15)
[2024-08-28] MEDS ORDERED: ceFAZolin 2 GM/D5W50ml 50 ML IV ONE (08:59)
[2024-08-28] MEDS ORDERED: DexAMETHasone SOD PHOS 10MG/1ML VIAL INJ ONE (09:52)
[2024-08-28] MEDS: LIDOCAINE 1% HCL (LOCAL ANESTH.) INJ 20ML MDV ONE (09:58)
[2024-08-28] MEDS: BUPIVACAINE HCL 0.25% P/F 10 ML VIAL ONE (09:58)
[2024-08-28] MEDS ORDERED: GELATIN 1 SPONGE SIZE 100 TOP ONE (10:14)
[2024-08-28] MEDS: GELATIN 1 SPONGE SIZE 50 TOP ONE (10:18)
[2024-08-28 10:44] VITALS: PULSE 101; RESP 15
[2024-08-28 12:10] VITALS: BP 128/64; PULSE 77; RESP 18; O2SAT 98
--- NOTE | 2024-08-28 12:13 | DVH ---
C-ARM FLUOROSCOPY: PROCEDURE: 1st digit repair FLUOROSCOPY TIME: 2.9 sec DAP: 0.06 mgy FINDINGS: Spot intraoperative C arm radiographs demonstrating 1st digit repair . IMPRESSION: Please refer to surgical report for detailed findings.
--- NOTE | 2024-08-30 12:08 | DVHOP2 ---
Operative Report - 2 Report Details Date: 08/28/24 Preop Diagnosis: Left thumb carpo-metacarpal osteoarthritis, dequervain tendonitis Postop Diagnosis: as above Surgeon: Wilfrid Goodman MD Pearler: Hermes SALGADO Anesthesiologist: Carlos Alberto LINDA Anesthesia: General Consent: The patient was informed of the risks and benefits of the procedure. These include but are not limited to complications of anesthesia, postoperative infection, incomplete relief of symptoms, recurrence of symptoms, damage to blood vessels, nerves and tendons, deep venous thrombosis, pulmonary embolism and possible need for repeat surgery in the future. Estimated Blood Loss: 5 cc Name of Procedure Performed Left thumb trapeziectomy, APL Suspensionplasty, dequervain tendon release; intraop fluoro Procedure Details Procedure Details: Patient is a pleasant RHD F who has had long standing Left thumb pain. Risks benefits options and alternatives discussed in depth and patient agrees to proceed with surgery. Patient noted to have large osteophytes around thumb CMC joint and dequervain tendonitis.. Patient was seen and evaluated in the preoperative holding area. All final questions were answered. Left wrist was marked. Patient was brought into the operating room and placed supine on the operating room table. A well padded tourniquet was placed on the leftt arm. General anesthesia induced. Limb was ex sanguinated using an Esmarch and tourniquet elevated to 250 mmHg. Attention was turned to CMC. A curvilinear incision was marked and made from the first metacarpal extending dorsally over the first dorsal extensor compartment. This was incised sharply with a 15 blade scalpel through skin and subcutaneous tissue. Care was taken to identify the dorsal branch of the radial artery which was identified and protected. Once the artery protected a sharp dissection carried through the first CMC joint. Capsulotomy performed. Trapezium was confirmed under fluoro with a pin. trapezectomy was performed longitudinal traction was placed to evaluate the STT joint. There was minimal STT arthritis. Wound was copiously irrigated. We then harvested the APL tendon first dorsal compartment was released dorsally for full dequervain release as possible and the ulnar most slip of the APL tendon was selected. This was transected at the musculotendinous junction. A stay suture was placed using 3-0 ethibond. TI was then delivered distally into the wound. A madina was made in the FCR tendon. Pearler maintained traction on the thumb and the PAL tendon was woven through the FCR and secure with 3-0 ethibond sutures. The remaining tail was then woven in to an anchovy fashion and stuffed into CMC empty shell. Once performed, fluro evaluation done. The wound was then closed with capsular closure suing 3-0 ethbiond and then subcutaneous closure with 4-0 vicryl and a 3-0 nylon for the skin. Tourniquet release. A thumb spica splint placed and patient awoken from anesthesia. Patient transferred to Recovery in stable condition. All final counts were correct. There were no complications Condition Good Disposition Home WILFRID GOODMAN MD August 30, 2024 12:08
== END 2024-08-28 11:40 | disposition home or self-care (01) ==
LOC: SUR 07:32
PROVIDERS: ATTEND Orthopaedic Surgery Adult Reconstructive Orthopaedic Surgery
DX: M18.12 Unilateral primary osteoarthritis of first carpometacarpal joint, left hand (principal); M77.8 Other enthesopathies, not elsewhere classified; M65.4 Radial styloid tenosynovitis [de Quervain]; I10 Essential (primary) hypertension; J45.909 Unspecified asthma, uncomplicated; F32.9 Major depressive disorder, single episode, unspecified; Z79.899 Other long term (current) drug therapy; Z98.890 Other specified postprocedural states; Z98.41 Cataract extraction status, right eye; Z98.42 Cataract extraction status, left eye; Z88.2 Allergy status to sulfonamides; Z88.8 Allergy status to other drugs, medicaments and biological substances
CPT/HCPCS: 25000; 25448; 36415; 73140; 76000; 80053; 81001; 85025; 85610; 85730; J0690; J1100; J1171; J2003; J2250; J2405; J2704; J3010; J3490

== ENCOUNTER → 2025-02-01 | Outpatient (CLI) | payer OTHER ==
[2025-02-01 11:10] LABS: Alanine Aminotransferase 23 U/L (7-40); Albumin 4.7 g/dL (3.2-4.8); Anion Gap 10 (5-15); BUN/Creatinine Ratio 17.3 (10.0-20.0); Bilirubin, Total 0.4 mg/dL (0.2-1.0); Blood Urea Nitrogen 19 mg/dL (9-23); Calcium 10.3 mg/dL (8.7-10.4); Carbon Dioxide 28 mmol/L (20-31); Chloride 104 mmol/L (98-107); Glucose 90 mg/dL (74-106); Potassium 4.6 mmol/L (3.5-5.1); Sodium 142 mmol/L (136-145); Total Protein 7.6 g/dL (5.7-8.2)
[2025-02-01 11:31] LABS: Alkaline Phosphatase 130 U/L (46-116)
== END | disposition home or self-care (01) ==
LOC: LAB 09:49
PROVIDERS: ATTEND Internal Medicine
DX: I12.9 Hypertensive chronic kidney disease with stage 1 through stage 4 chronic kidney disease, or unspecified chronic kidney disease (principal); N18.31 Chronic kidney disease, stage 3a
CPT/HCPCS: 36415; 80053; 82043

== ENCOUNTER 2025-03-05 12:43 | Outpatient (CLI) | payer OTHER | END 2025-03-05 17:00 | disposition home or self-care (01) | LOC: XYW 12:43 | PROVIDERS: ATTEND Internal Medicine | DX: I10 Essential (primary) hypertension (principal) | CPT/HCPCS: 93306 ==